=== PATIENT | female | born 1980 | race Caucasian/White ===

== ENCOUNTER → 2017-01-02 | Emergency (ER) | payer OTHER ==
[~2017-01-02] VITALS: Wt 62.5 kg
[~2017-01-02] MED LIST: HYDR-906 PO; ONDA4TAB14 PO; ONDANSETRON 4 MG INJ IV STA; SOD CHLORIDE 0.9% 1,000 ML IV STA; morphine 4 MG/ML VIAL IV STA
--- NOTE | 2017-01-02 19:56 | ERD ---
ER Documentation Chief Complaint Date/Time DATE: 01/02/17 TIME: 19:55 Chief Complaint ABD PAIN FOR THE PAST 2 DAYS. VOMTING NO DIARRHEA. HPI This is a 36-year-old female with a history of small bowel obstruction, appendectomy presenting to the emergency department complaining of lower abdominal pain for the past 2 days. Patient states the pain is severe 8 out of 10. Patient states this feels similar to the last time she had a small bowel obstruction. Patient's complaining of vomiting with a couple episodes of diarrhea. Patient has not taken any medications for this. She denies any fevers, dysuria. Patient states her last menstrual period was 2 weeks ago ROS All systems reviewed and are negative except as per history of present illness. Medications Home Meds Active Scripts Ondansetron (Ondansetron Odt) 4 Mg Tab.rapdis, 4 MG PO Q6H Y for NAUSEA AND/OR VOMITING, #15 TAB Prov:MASSIMO HEART PA-C 01/02/17 Hydrocodone/Acetaminophen (Seymour 5-325 Tablet) 1 Each Tablet, 1 TAB PO Q6H Y for PAIN, #20 TAB Prov:MASSIMO HEART PA-C 01/02/17 Allergies Allergies: Coded Allergies: No Known Allergy (Unverified , 01/02/17) PMhx/Soc History of Surgery: Yes (C/S) Anesthesia Reaction: No Hx Neurological Disorder: No Hx Respiratory Disorders: No Hx Cardiac Disorders: No Hx Psychiatric Problems: No Hx Miscellaneous Medical Probl: Yes (SMALL BOWEL OBSTRUCTION; APPENDICITIS; PERITONITIS) Hx Alcohol Use: Yes (SOCIAL DRINKER 1/ WEEK) Hx Substance Use: No Hx Tobacco Use: No Smoking Status: Never smoker Physical Exam Vitals Vital Signs Date Time Temp Pulse Resp B/P Pulse Ox O2 Delivery O2 Flow Rate FiO2 01/02/17 17:29 98.1 102 20 119/73 99 Physical Exam GENERAL: well-developed/well-nourished, in no apparent distress, non-toxic appearing HENT: NC/AT, moist mucous membranes EYES: Conjunctiva normal NECK: Supple, no lymphadenopathy PULM: CTA bilaterally, no rales, rhonchi, or wheezing heard CV: Normal S1S2, RRR, good capillary refill GI: Soft, non-distended, tender to palpation pelvic region Normal bowel sounds, no masses or organomegaly felt on exam No gross peritonitis, no bruits Negative Rovsing, negative Stewart, negative McBurney's point, Negative CVAT BACK: No masses EXT: No clubbing, cyanosis, or edema NEURO: Alert and Orientated SKIN: Intact, normal turgor PSYCH: Normal mood and mentation Result Diagram: 01/02/17 1950 01/02/17 1950 Results 24 hrs Laboratory Tests Test 01/02/17 19:34 01/02/17 19:50 Urine Bilirubin NEGATIVE Urine Clarity SLIGHTLY CLOUDY Urine Color LT. YELLOW Urine Glucose NEGATIVE% Urine Hemoglobin NEGATIVE Urine Ketones NEGATIVE Urine Leukocyte Esterase NEGATIVE Urine Nitrite NEGATIVE Urine Specific [place] >=1.030 Urine Total Protein NEGATIVE Urine Urobilinogen 0.2 E.U./dL Urine pH 6.0 Alanine Aminotransferase (ALT/SGPT) 22IU/L Albumin 4.5g/dl Albumin/Globulin Ratio 1.28 Alkaline Phosphatase 101IU/L Anion Gap 18 Aspartate Amino Transf (AST/SGOT) 17IU/L Basophils # 0.010^3/ul Basophils % 0.2% Blood Urea Nitrogen 13mg/dl Calcium Level 9.4mg/dl Carbon Dioxide Level 26mmol/L Chloride Level 101mmol/L Creatinine 0.64mg/dl Direct Bilirubin 0.00mg/dl Eosinophils # 0.110^3/ul Eosinophils % 1.3% Globulin 3.50g/dl Glucose Level 91mg/dl Hematocrit 36.7% Hemoglobin 12.1g/dl Indirect Bilirubin 0.5mg/dl Lipase 88U/L Lymphocytes # 2.210^3/ul Lymphocytes % 21.8% Mean Corpuscular Hemoglobin 28.5pg Mean Corpuscular Hemoglobin Concent 33.0g/dl Mean Corpuscular Volume 86.4fl Mean Platelet Volume 10.0fl Monocytes # 0.810^3/ul Monocytes % 7.9% Neutrophils # 6.810^3/ul Neutrophils % 68.5% Nucleated Red Blood Cells # 0.010^3/ul Nucleated Red Blood Cells % 0.0/100WBC Platelet Count 80100^3/UL Potassium Level 3.8mmol/L Red Blood Count 4.2510^6/ul Red Cell Distribution Width 14.9% Sodium Level 141mmol/L Total Bilirubin 0.5mg/dl Total Protein 8.0g/dl White Blood Count 10.010^3/ul Current Medications Medications (Trade) Dose Ordered Sig/Robbie Route PRN Reason Start Time Stop Time Status Last Admin Dose Admin Sodium Chloride (NS) 1,000 ml @ 1,000 mls/hr Q1H STAT IV 01/02/17 19:25 01/02/17 20:24 DC 01/02/17 19:54 Morphine Sulfate (morphine) 4 mg ONCE STAT IV 01/02/17 19:25 01/02/17 19:26 DC 01/02/17 19:53 Ondansetron HCl (Zofran Inj) 4 mg ONCE STAT IV 01/02/17 19:25 01/02/17 19:26 DC 01/02/17 19:54 Procedures/MDM This is a 36-year-old female with a history of small bowel obstruction, appendectomy presenting to the emergency department complaining of pelvic pain, nausea, vomiting and diarrhea for the past 2 days. Most likely viral gastroenteritis and ovarian cysts. Low suspicion for obstruction, pseudomembranous colitis, diverticulitis, appendicitis, ovarian torsion, ruptured ovarian cyst, cholecystitis, pancreatitis, or other abdominal emergencies or acute cardiopulmonary conditions due to physical examination and diagnostic testing. IV access is established. Patient was given 1 L fluids, Zofran labs were drawn , CBC did not show any evidence of leukocytosis or anemia. CMP did not show any liver, renal, or electrolyte abnormalities. Lipase was unremarkable. UA was unremarkable for urinary tract infection. urine preg was negative. Patient was given Zofran, and morphine with improvement of nausea and pain. CT of the abdomen and pelvis without contrast was done, radiologist stated: Possible right ovarian cyst or hydrosalpynx along with mild to moderate pelvic free fluid. This can be further evaluated with pelvic ultrasound Pelvic ultrasound stated: 1. Mildly prominent retroverted uterus with a thickened 1.7 cm endometrial stripe. 2. Prominent right ovary with a 3.7 x 2.4 x 1.4 cm cyst with homogeneous low level internal echoes which could represent an endometrioma or a hemorrhagic cyst. 3. The left ovary is mildly prominent and contains a hypoechoic area measuring 1.9 x 1.3 x 0.9 cm suspicious for a hemorrhagic cyst. 4. No adnexal mass is evident but there is a moderate amount of free intraperitoneal fluid with a small amount of echogenic debris. Patient is hemodynamically stable for discharge. Patient passed the fluid challenge test. Prescription Zofran and Seymour was given. Discussed to increase fluids. Discussed to follow-up with an [employer] tomorrow. Discussed to return to the ED if not improving as expected or for any worsening conditions. Patient understood and agreed with this plan. Departure Diagnosis: Primary Impression: Pelvic pain Additional Impression: Vomiting and diarrhea Condition: Stable MASSIMO HEART PA-C Jan 02, 2017 19:56
[2017-01-02 20:03] LABS: ADD UMIC NO; URINE BILIRUBIN (Dip) NEGATIVE (NEGATIVE); URINE BLOOD (Dip) NEGATIVE (NEGATIVE); URINE COLOR LT. YELLOW (YELLOW); URINE GLUCOSE (Dip) NEGATIVE (NEGATIVE); URINE KETONES (Dip) NEGATIVE (NEGATIVE); URINE LEUKOCYTE ESTERASE (Dip) NEGATIVE (NEGATIVE); URINE NITRITE (Dip) NEGATIVE (NEGATIVE); URINE TOTAL PROTEIN (Dip) NEGATIVE (NEGATIVE); URINE UROBILINOGEN (Dip) 0.2 E.U./dL (0.1-1.0)
[2017-01-02 20:24] LABS: ADD SCAN DIFF NO
[2017-01-02 20:26] LABS: BASOPHILS % 0.2 % (0.0-2.0); EOSINOPHILS # 0.1 10^3/ul (0.0-0.5); EOSINOPHILS % 1.3 % (0.0-7.0); HEMATOCRIT 36.7 % (37.0-47.0); HEMOGLOBIN 12.1 g/dl (12.0-16.0); LYMPHOCYTES # 2.2 10^3/ul (0.8-2.9); LYMPHOCYTES % 21.8 % (15.0-51.0); MEAN CORPUSCULAR HEMOGLOBIN 28.5 pg (29.0-33.0); MEAN CORPUSCULAR VOLUME 86.4 fl (82.0-101.0); MONOCYTE # 0.8 10^3/ul (0.3-0.9); MONOCYTES % 7.9 % (0.0-11.0); NEUTROPHIL # 6.8 10^3/ul (1.6-7.5); NEUTROPHILS % 68.5 % (39.0-77.0); PLATELET COUNT 405 10^3/UL (140-415); RED BLOOD COUNT 4.25 10^6/ul (4.20-5.40); RED CELL DISTRIBUTION WIDTH 14.9 % (11.5-14.5)
[2017-01-02 20:34] LABS: ALBUMIN 4.5 g/dl (3.3-4.9)
[2017-01-02 20:35] LABS: POTASSIUM 3.8 mmol/L (3.5-5.1)
[2017-01-02 20:37] LABS: ALBUMIN/GLOBULIN RATIO 1.28; BILIRUBIN,INDIRECT 0.5 mg/dl (0-1.1); BILIRUBIN,TOTAL 0.5 mg/dl (0.2-1.3); CREATININE 0.64 mg/dl (0.44-1.00)
[2017-01-02 20:38] LABS: CALCIUM 9.4 mg/dl (8.4-10.2)
--- NOTE | 2017-01-02 20:40 | RADRPT ---
PROCEDURE: CT abdomen and pelvis without intravenous contrast. CLINICAL INDICATION: Pain. TECHNIQUE: CT of the abdomen/pelvis was performed utilizing axial images with reconstructions in s agittal and coronal planes. The administered radiation dose is CTDI 9.1 mGy, DLP 433.4 mGy-cm. COMPARISON: No pertinent prior examinations were submitted for comparison. FINDINGS: Visualized Chest: The visualized lung bases are clear. Abdomen: The liver, spleen, pancreas, gallbladder,and adrenal glands are unremarkable. The kidneys are without hydronephrosis. No definite urinary calculi are seen. There is no evidence of bowel obstruction. The appendix is not seen, presumably resected. There is no evidence of acute appendicitis. No intra-abdominal free air is seen. There is no evidence of intra-abdominal adenopathy or free fluid. Pelvis: There is a small to moderate amount of pelvic free fluid. 1 or 2 right adnexal cystic structures ar e seen, possibly ovarian cysts or hydrosalpinx. The uterus and left ovary are grossly unremarkable. The urinary bladder is unremarkable. Osseous structures: Unremarkable. IMPRESSION: Possible right ovarian cyst or hydrosalpynx along with mild to moderate pelvic free fluid. This can be further evaluated with pelvic ultrasound. RPTAT: HIKT .Krunal Bonilla MD, MD Date Time Electronically viewed and signed by .Krunal Bonilla MD, on 01/02/2017 20:40 .T/
--- NOTE | 2017-01-02 21:55 | RADRPT ---
PROCEDURE: US Pelvis Non-OB CLINICAL INDICATION: Pain, rule out ovarian torsion TECHNIQUE: Images were taken during real time trans pelvic and endovaginal interrogation. Color-fl ow and Doppler interrogation of the ovaries was performed. COMPARISON: The previous CT done earlier on the same date The previous CT demonstrated pleural pleural a 2.4 cm right adnexal cystic structure and a small am ount of free intraperitoneal fluid. FINDINGS: Uterus: Appears retroverted and is normal in size measuring 9.2 cm in sagittal diameter and 5.6 x 4 .7 cm in cross diameter. The endometrial stripe is thickened measuring 1.7 cm in total AP diameter. Ovaries: The right ovary is enlarged measuring 5.9 x 3.7 x 2.7 cm and contains a 3.7 x 2.4 x 1.4 cm cyst with homogeneous low level internal echoes possibly representing an endometrioma or hemorrhagic cyst. The left ovary measures 4.6 x 3.2 x 3.2 cm and contains a hypoechoic area measuring 1.9 x 1.3 x 0.9 cm suspicious for a hemorrhagic cyst. Each ovary demonstrates vascular flow on Doppler. Adnexa: No adnexal mass is identified. Free intraperitoneal fluid: There is a moderate amount of free intraperitoneal fluid. IMPRESSION: 1. Mildly prominent retroverted uterus with a thickened 1.7 cm endometrial stripe. 2. Prominent right ovary with a 3.7 x 2.4 x 1.4 cm cyst with homogeneous low level internal echoes which could represent an endometrioma or a hemorrhagic cyst. 3. The left ovary is mildly prominent and contains a hypoechoic area measuring 1.9 x 1.3 x 0.9 cm s uspicious for a hemorrhagic cyst. 4. No adnexal mass is evident but there is a moderate amount of free intraperitoneal fluid with a s mall amount of echogenic debris. Physician Oscar Date Time Electronically viewed and signed by Physician Oscar on 01/02/2017 21:55 /
[2017-01-02 22:37] VITALS: BP 108/68; PULSE 85; RESP 18; TEMP 98.1
== END | disposition home or self-care (01) ==
LOC: FTE 17:20
DX: R10.2 Pelvic and perineal pain (principal); R11.10 Vomiting, unspecified; R19.7 Diarrhea, unspecified
CPT/HCPCS: 36415; 74176; 76830; 76856; 80053; 81003; 83690; 85025; 96374; 96375; J2270; J2405; J7030; Z7502

== ENCOUNTER 2018-08-03 22:30 | Observation (INO) | END 2018-08-05 13:31 | disposition home or self-care (01) ==